=== PATIENT | male | born 1990 | race Caucasian/White ===

== ENCOUNTER 2020-08-05 05:26 | Emergency (ER) | payer OTHER ==
[2020-08-05 07:46] LABS: ABSOLUTE LYMPHOCYTES (AUTO) 1.7 10^3/uL (0.5-4.7); ABSOLUTE MONOCYTES (AUTO) 0.6 10^3/uL (0.1-1.4); ABSOLUTE NEUT (AUTO) 5.6 10^3/uL (1.7-8.2); BASOPHILS % (AUTO) 0.6 % (0-2); EOSINOPHILS % (AUTO) 0.6 % (0-6); HEMATOCRIT 42.4 % (37.9-51.0); HEMOGLOBIN 14.5 g/dL (13.5-17.0); LYMPHOCYTES % (AUTO) 21.1 % (13-45); MEAN CORPUSCULAR HEMOGLOBIN 28.7 pg (27.0-33.4); MEAN CORPUSCULAR HGB CONC 34.2 g/dL (32.0-36.0); MEAN CORPUSCULAR VOLUME 84 fl (80-97); MONOCYTES % (AUTO) 7.4 % (3-13); PLATELET COUNT 255 10^3/uL (150-450); RED BLOOD COUNT 5.04 10^6/uL (4.35-5.55); SEGMENTED NEUTROPHILS % (AUTO) 70.3 % (42-78); TOTAL CELLS COUNTED % (AUTO) 100 %
--- NOTE | 2020-08-05 07:49 | ER Document Report ---
ED Cardiac - General Chief Complaint: Chest Pain Stated Complaint: CHEST PAIN Time Seen by Provider: 08/05/20 07:38 Mode of Arrival: Ambulatory Information source: Patient Notes: 08/05/20 05:54 - ED Nursing Note by ELIS WILKS Num: [id number] : 1990 Patient Age: 29 pt awoke at 0430 w/chest tightness 4/5. pt was sob w/ walking into hospital. pt now nauseated. pt denies any street drug use. pt denies any medical problems. pt denies family hx of cardiac. pt speaking in full sentences. resp e/u. pt was diaphoretic at home. MY NOTES 29-year-old male arrives with his with chief complaint of left- sided chest squeezing around 4 out of 5. It was 5 out of 5 when he first woke. The pain continued until around 0 540 when he was getting his EKG here in the ER. Patient also reported he had dyspnea on exertion walking to the bathroom and walking to the ER with his . Patient usually exercises quite frequently and last did so around 1 week ago but not recently. His reports she has had a least 5 events just like this over the last year lasting around 5 minutes but none as long-lasting as this morning. No prior history in himself or family for pulmonary emboli or Covid or for heart problems. He did complain of nausea without vomiting shortness of breath but no diaphoresis. He denies any nuchal rigidity new medicines. They have no pets he denies any COVID-19. He is a marine. His is doing well at this time without any illness. He denies any sore throat vision problems or cough or cold symptoms TRAVEL OUTSIDE OF THE [place] IN LAST 30 DAYS: No - HPI Patient complains to provider of: Chest pain, Chest tightness Use of: denies: Alcohol, Amphetamines, Bath salts, Caffeine, Cocaine, Decongestants Was the onset of pain: Sudden Is the pain a: New problem Quality of pain: denies: Constant, Intermittent, Mild, Moderate, Severe, Achy, Cramping, Incisional, Numbness, Sharp, Stabbing, Throbbing, Tingling - Related Data Allergies/Adverse Reactions: No Known Allergies Allergy (Verified 08/05/20 08:26) Past Medical History - General Information source: Patient - Social History Smoking Status: Never Smoker Cigarette use (# per day): No Chew tobacco use (# tins/day): No Smoking Education Provided: No Frequency of alcohol use: None Drug Abuse: None Lives with: Family Family History: Reviewed & Not Pertinent Patient has suicidal ideation: No Patient has homicidal ideation: No Review of Systems - Review of Systems Constitutional: No symptoms reported EENT: No symptoms reported Cardiovascular: See HPI, Chest pain Respiratory: See HPI, Hurts to breathe, Short of breath, Other - adrian. denies: Cough, Hemoptysis, Sputum, Stridor Gastrointestinal: No symptoms reported Genitourinary: No symptoms reported Male Genitourinary: No symptoms reported Musculoskeletal: No symptoms reported Skin: No symptoms reported Hematologic/Lymphatic: No symptoms reported Neurological/Psychological: No symptoms reported Physical Exam - Vital signs Vitals: Temp Pulse Resp BP Pulse Ox 97.4 F 68 16 135/66 H 100 08/05/20 05:45 08/05/20 05:45 08/05/20 05:45 08/05/20 05:45 08/05/20 05:45 Interpretation: Normal - General General appearance: Appears well, Alert - HEENT Head: Normocephalic, Atraumatic Eyes: Normal Pupils: PERRL - Respiratory Respiratory status: No respiratory distress Chest status: Nontender Breath sounds: Normal Chest palpation: Normal - Cardiovascular Rhythm: Regular Heart sounds: Normal auscultation Murmur: No - Abdominal Inspection: Normal Distension: No distension Bowel sounds: Normal Tenderness: Nontender Organomegaly: No organomegaly - Rectal Prostate: Other - Deferred - Genitourinary Scrotum: Other - Deferred - Back Back: Normal, Nontender - Extremities General upper extremity: Normal inspection, Nontender, Normal color, Normal ROM, Normal temperature General lower extremity: Normal inspection, Nontender, Normal color, Normal ROM, Normal temperature, Normal weight bearing. No: Henry's sign - Neurological Neuro grossly intact: Yes Cognition: Normal Orientation: AAOx4 [place] Coma Scale Eye Opening: Spontaneous [place] Coma Scale Verbal: Oriented [place] Coma Scale Motor: Obeys Commands [place] Coma Scale Total: 15 Speech: Normal Motor strength normal: LUE, RUE, LLE, RLE Sensory: Normal - Psychological Associated symptoms: Normal affect, Normal mood - Skin Skin Temperature: Warm Skin Moisture: Dry Skin Color: Normal Course - Vital Signs Vital signs: Temp Pulse Resp BP Pulse Ox 97.4 F 68 19 135/62 H 100 08/05/20 05:45 08/05/20 05:45 08/05/20 09:02 08/05/20 09:02 08/05/20 09:02 - Laboratory Results Result Diagrams: 08/05/20 07:35 08/05/20 07:35 Laboratory Results Interpreted: 08/05/20 07:35 Carbon Dioxide 31 H BUN 21 H Critical Laboratory Results Reviewed: No Critical Results Attending or Supervising Physician who Reviewed Labs: ОЛЬГА WILLS JR - Radiology Results Radiology Results Interpreted: 08/05/20 09:02 Dr[address] Dr. Johnson radiologist read the chest x-ray and CT debi pam. These were both negative. Critical Radiology Results Reviewed: No Critical Results Attending or Supervising Physician who Reviewed Radiology: ОЛЬГА WILLS JR - EKG Interpretation by Ca EKG shows normal: Sinus rhythm Rate: Normal Rhythm: NSR - With heart rate at [address] elevation no ST depression no T wave elevation no T wave depression axis within normal limits and I read this EKG as well as Dr. Hoffman model and pattern supervisor and I agree with the EKG machine. Critical Care Note - Critical Care Note Comments: I discussed this patient's findings with Dr. Hoffman at 0905 he advised he will come by the ER for evaluation. He saw patient at 0 915 with ultrasound Discharge - Discharge Clinical Impression: Chest pain at rest, COVID-19 virus RNA test result unknown, Pleuritic chest pain Condition: Stable Disposition: HOME, SELF-CARE Instructions: COVID-19 Guidance for Persons Under Investigation Additional Instructions: Follow-up with personal doctor and with Dr. Hoffman model and pattern supervisor; take medicin es as directed; encourage fluids; off work as directed Prescriptions: Doxycycline Monohydrate 100 mg PO DAILY #10 capsule Etodolac [Lodine] 400 mg PO DAILY #10 tablet Forms: Return to Work
[2020-08-05 08:04] LABS: ALBUMIN 4.6 g/dL (3.5-5.0); ALKALINE PHOSPHATASE 62 U/L (38-126); ANION GAP 7 (5-19); ASPARTATE AMINO TRANSFERASE 22 U/L (17-59); BILIRUBIN,DIRECT 0.1 mg/dL (0.0-0.4); BILIRUBIN,TOTAL 0.7 mg/dL (0.2-1.3); BLOOD UREA NITROGEN 21 mg/dL (7-20); CALCIUM 9.9 mg/dL (8.4-10.2); CARBON DIOXIDE 31 mmol/L (22-30); CHLORIDE 102 mmol/L (98-107); CREATINE KINASE 106 U/L (55-170); GLUCOSE 104 mg/dL (75-110); POTASSIUM 4.9 mmol/L (3.6-5.0); TOTAL PROTEIN 7.4 g/dL (6.3-8.2)
[2020-08-05 08:15] LABS: CREATINE KINASE MB 0.38 ng/mL (<4.55)
[2020-08-05 08:20] LABS: TROPONIN I < 0.012 ng/mL
--- NOTE | 2020-08-05 08:35 | RADIOLOGY REPORT (SQ) ---
EXAM DESCRIPTION: CHEST SINGLE VIEW IMAGES COMPLETED DATE/TIME: 08/05/2020 8:10 am REASON FOR STUDY: cp COMPARISON: None. EXAM PARAMETERS: NUMBER OF VIEWS: One view. TECHNIQUE: Single frontal radiographic view of the chest acquired. RADIATION DOSE: NA LIMITATIONS: None. FINDINGS: LUNGS AND PLEURA: No opacities, masses or pneumothorax. No pleural effusion. MEDIASTINUM AND HILAR STRUCTURES: No masses. Contour normal. HEART AND VASCULAR STRUCTURES: Heart normal in size. Normal vasculature. BONES: No acute findings. HARDWARE: None in the chest. OTHER: No other significant finding. IMPRESSION: NO ACUTE RADIOGRAPHIC FINDING IN THE CHEST. TECHNICAL DOCUMENTATION: JOB ID: [id number] 2010 [employer]- All Rights Reserved Reading location - IP/workstation name: [email or web address]
--- NOTE | 2020-08-05 09:00 | RADIOLOGY REPORT (SQ) ---
EXAM DESCRIPTION: CTA CHEST IMAGES COMPLETED DATE/TIME: 08/05/2020 8:49 am REASON FOR STUDY: cp COMPARISON: None. TECHNIQUE: CT scan of the chest performed using helical scanning technique with dynamic intravenous contrast injection. Images reviewed with lung, soft tissue and bone windows. Reconstructed coronal and sagittal MPR images reviewed. Additional 3 dimensional post-processing performed to develop Maximal Intensity Projection images (NV P). All images stored on PACS. All CT scanners at this facility use dose modulation, iterative reconstruction, and/or weight based d osing when appropriate to reduce radiation dose to as low as reasonably achievable (ALARA). [facility]: Dose Right [facility]: CareDose [facility]: Dose Right [facility]: Teradose 4D [facility]: ClearTax CONTRAST TYPE AND DOSE: contrast/concentration: Isovue 350.00 mmol/ml; Total Contrast Delivered: 59. 0 ml; Total Saline Delivered: 66.4 ml Contrast bolus optimized for the pulmonary arteries. Not diagnostic for the aorta. RENAL FUNCTION: BUN 21, creatinine 1.05 RADIATION DOSE: CT Rad equipment meets quality standard of care and radiation dose reduction techniq ues were employed. CTDIvol: 9.9 - 15.7 mGy. DLP: 610 mGy-cm. . LIMITATIONS: None. FINDINGS: LUNGS AND PLEURA: No masses, infiltrates, or pneumothorax. No pleural effusions or pleura l calcifications. AORTA AND GREAT VESSELS: No aneurysm. Contrast bolus not optimized for the aorta. HEART: No pericardial effusion. No significant coronary artery calcifications. PULMONARY ARTERIES: No emboli visualized in the main pulmonary arteries or the segmental branches. HILAR AND MEDIASTINAL STRUCTURES: No identified masses or abnormal nodes. HARDWARE: None in the chest. UPPER ABDOMEN: No significant findings. Limited exam. THYROID AND OTHER SOFT TISSUES: No masses. No adenopathy. BONES: No acute or significant finding. 3D MIPS: Confirm above findings. OTHER: No other significant finding. IMPRESSION: NORMAL CTA OF THE CHEST. NO PULMONARY EMBOLI. COMMENT: Quality ID # [id number]: Final reports with documentation of one or more dose reduction techniques (e.g., Automated exposure control, adjustment of the mA and/or kV according to patient size, use of iterative reconstruction technique) TECHNICAL DOCUMENTATION: JOB ID: [id number] 2010 [employer]- All Rights Reserved Reading location - IP/workstation name: [email or web address]
[2020-08-05 09:24] VITALS: BP 135/62
--- NOTE | 2020-08-05 09:45 | PDOC CONSULTATION ---
Consultation Consult Date: 08/05/20 Attending physician:: ОЛЬГА WILLS JR Provider Consulted: SHAREE NORTH Consult reason:: atypical chest pain History of Present Illness History of Present Illness: GARETH BRUNO is a 29 year old male without known medical history, no family history of premature coronary artery disease, non-smoker, denies use of drugs as well as energy/workout supplements who is consulted by the emergency room for evaluation of atypical chest pain. The patient woke up this morning at 0430 with chest pain that he described as a tightness, feeling really heavy, localized over the left breast, associated with lower extremity numbness and cold sweating. His states that when she put her hand over his left chest she noticed that the muscles were clenching. The patient denied any aggravating or alleviating factors however stated that he did not want to lay down because he felt "stuck" when laying down. He was also very anxious at the time. 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 Physical exam in the emergency room on 08/05/2020: GENERAL: Pleasant and conversational. Oriented x3 with normal mood. Not in acute distress. Well groomed and well developed. HEENT: Normocephalic, atraumatic. Pupils equal. Sclerae anicteric. Oropharynx moist. NECK: No JVD. No carotid bruits. LUNGS: Clear to auscultation bilaterally. Normal respiratory effort without the use of accessory muscles or intercostal retractions. CARDIOVASCULAR: Regular rate and rhythm, normal S1 and S2 without murmurs, rubs, or gallops. PMI not displaced. ABDOMEN: No masses or tenderness to palpation. No bruit. No splenomegaly or hepatomegaly. No abdominal aorta bruit noted. EXTREMITIES: No edema, no cyanosis, no clubbing. +2 pulses femoral and pedal pulses bilaterally. SKIN: No lesions or rashes. MUSCULOSKELETAL: No chest tenderness to palpation. NEUROLOGIC: Nonfocal. No gross sensory or motor deficits bilateral upper or lower extremities. Social History Lives with: Family Smoking Status: Never Smoker Family History Family History: Reviewed & Not Pertinent Parental Family History Reviewed: Yes Children Family History Reviewed: Yes Sibling(s) Family History Reviewed.: Yes Medication/Allergy Allergies/Adverse Reactions: No Known Allergies Allergy (Verified 08/05/20 08:26) Physical Exam Vital Signs: Temp Pulse Resp BP Pulse Ox 97.4 F 68 19 135/62 H 100 08/05/20 05:45 08/05/20 05:45 08/05/20 09:02 08/05/20 09:02 08/05/20 09:02 Intake & Output 08/04/20 08/05/20 08/06/20 06:59 06:59 06:59 Weight 79.379 kg Results Laboratory Results: 08/05/20 07:35 08/05/20 07:35 08/05/20 08/05/20 07:35 07:35 WBC 8.0 RBC 5.04 Hgb 14.5 Hct 42.4 MCV 84 MCH 28.7 MCHC 34.2 RDW 13.0 Plt Count 255 Seg Neutrophils % 70.3 Sodium 139.5 Potassium 4.9 Chloride 102 Carbon Dioxide 31 H Anion Gap 7 BUN 21 H Creatinine 1.05 Est GFR ( Amer) > 60 Glucose 104 Calcium 9.9 Total Bilirubin 0.7 AST 22 Alkaline Phosphatase 62 Total Protein 7.4 Albumin 4.6 08/05/20 08/05/20 07:35 07:35 Creatine Kinase 106 CK-MB (CK-2) 0.38 Troponin I < 0.012 Impressions: Chest X-Ray 08/05/20 07:53 IMPRESSION: NO ACUTE RADIOGRAPHIC FINDING IN THE CHEST. Chest/Abdomen CTA 08/05/20 07:53 IMPRESSION: NORMAL CTA OF THE CHEST. NO PULMONARY EMBOLI. 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 He exercises regularly without any chest pain. He is currently pain-free. His cardiac work-up in the emergency room to include 1 set of cardiac enzymes and EKG have been unrevealing. CTA of the chest demonstrated absence of pulmonary embolisms, no significant coronary calcification and no other significant abnormalities in the chest. A bedside, limited echocardiogram by myself demonstrated a normal systolic function, no regional wall motion abnormalities and no pericardial effusions. At this point there is no significant cardiac pathology to explain his atypical chest pain. Recommendations: -The patient may be discharged home. -He was instructed to follow-up with his primary care provider. -He may return to the emergency room should symptoms recur or worsen.
== END 2020-08-05 09:48 | disposition home or self-care (01) ==
LOC: ER 05:26
DX: R07.9 Chest pain, unspecified (principal); R11.0 Nausea; R07.81 Pleurodynia; Z20.828 Contact with and (suspected) exposure to other viral communicable diseases
CPT/HCPCS: 99285; 36415; 82553; 82550; 85025; 87635; 80053; 84484; 85379; 71045; 71275; C9803